=== PATIENT | female | born 1950 ===

== ENCOUNTER 2020-08-21 06:15 | Day surgery (SDC) | payer OTHER ==
[~2020-08-21 06:15] MED LIST: LOSARTAN POTASS50 MG PO
== END 2020-08-21 17:00 | disposition home or self-care (01) ==
LOC: CIR.AMB 06:15
PROVIDERS: ATTEND Orthopaedic Surgery
DX: S83.201A Bucket-handle tear of unspecified meniscus, current injury, left knee, initial encounter (principal); M67.52 Plica syndrome, left knee; M22.42 Chondromalacia patellae, left knee; Z20.822 Contact with and (suspected) exposure to COVID-19; M65.862 Other synovitis and tenosynovitis, left lower leg